=== PATIENT | female | born 1960 | race African-American/Black ===

== ENCOUNTER → 2016-09-06 | Outpatient (CLI) | payer OTHER ==
[2016-09-06 11:44] LABS: Basophils # (A) 0.1 k/uL (0-0.2); Basophils % (A) 2 %; CH 30.4; CHCM 33.1; Eosinophils # (A) 0.2 k/uL (0-0.7); Eosinophils % (A) 2 %; HCT 43.8 % (34.0-46.0); HGB 14.3 gm/dL (11.4-16.0); Luc # (Auto) 0.18; Luc % (Auto) 2; Lymphocytes # (A) 2.6 k/uL (1.0-4.8); Lymphocytes % (A) 33 %; MCH 30.1 pg (25.0-35.0); MCHC 32.6 g/dL (31.0-37.0); MCV 92.5 fL (80.0-100.0); Mean Platelet Volume 7.9; Monocytes # (A) 0.4 k/uL (0-1.0); Monocytes % (A) 5 %; Neutrophils # (A) 4.4 k/uL (1.3-7.7); Neutrophils % (A) 56 %; RBC 4.73 m/uL (3.80-5.40); RDW 13.2 % (11.5-15.5); WBC 7.8 k/uL (3.8-10.6); WBC (Perox) 7.65
[2016-09-06 12:30] LABS: ALT 35 U/L (9-52); AST 22 U/L (14-36); Alkaline Phosphatase 166 U/L (38-126); Anion Gap 12 mmol/L; Blood Urea Nitrogen 16 mg/dL (7-17); C Reactive Protein 19.5 mg/L (<10.0); Calcium 9.8 mg/dL (8.4-10.2); Carbon Dioxide 30 mmol/L (22-30); Chloride 100 mmol/L (98-107); Glucose 109 mg/dL (74-99); Non-African American GFR(MDRD) >60 (>60 ml/min/1.73 sqM); Potassium 3.6 mmol/L (3.5-5.1); Rheumatoid Factor, Qnt <9 IU/mL (<12); Sodium 142 mmol/L (137-145); Total Bilirubin 0.7 mg/dL (0.2-1.3); Total Protein 8.5 g/dL (6.3-8.2)
[2016-09-06 13:19] LABS: Vitamin B12 446 pg/mL (239-931)
[2016-09-06 15:14] LABS: Erythrocyte Sedimentation Rate 75 mm/hr (0-20)
== END | disposition home or self-care (01) ==
LOC: LABWHC1 11:01
PROVIDERS: ATTEND Nurse Practitioner Acute Care
DX: M35.3 Polymyalgia rheumatica (principal)
CPT/HCPCS: 36415; 80053; 82607; 84439; 84443; 84481; 85025; 85652; 86038; 86140; 86431

== ENCOUNTER → 2016-09-06 | Outpatient (CLI) | payer OTHER | END | disposition home or self-care (01) | LOC: RADMRIMAIN 10:18 | PROVIDERS: ATTEND Psychiatry & Neurology Neurology | DX: M54.2 Cervicalgia (principal); M54.5 Low back pain; Z53.9 Procedure and treatment not carried out, unspecified reason ==

== ENCOUNTER → 2016-09-26 | Outpatient (CLI) | payer OTHER ==
--- NOTE | 2016-09-26 11:09 | WWHP ---
DATE OF SERVICE: 09/26/2016 CHIEF COMPLAINT: The patient is here for her routine gynecologic exam and mammogram. HPI: This is a 56-year-old G0 with an LMP of 2010. She is without gynecologic complaints and denies any postmenopausal bleeding. She states it has been about 3 to 4 years since her last pelvic exam. 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 Dr. Tiwari is her primary care physician and Dr. Ian Redman at [facility] is her GI doctor. MEDICATIONS: 1. Hydrocodone t.i.d. p.r.n. 2. Norvasc 10 mg daily. 3. Hydrochlorothiazide 50 mg daily. 4. Diphenhydramine 50 mg p.r.n. 5. Omeprazole 20 mg p.r.n. 6. Alprazolam 1 mg p.r.n. 7. Pravastatin 20 mg q.h.s. ALLERGIES: No known drug allergies. PAST SURGICAL HISTORY: Left wrist surgery, left femur surgery for patricia placement and later was removed; laparotomy for tubal infertility and laparoscopy for infertility; also colonoscopy with upper endoscopy in 2016 and left breast biopsy in the past. 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 She has been treated for gonorrhea x2 and Chlamydia in her 20s. She has no other history of STDs. SOCIAL HISTORY: She previously smoked about 15 cigarettes per day, but is now trying to quit and is less than 10 cigarettes per day at this time. She rarely drinks alcohol about 2 drinks per year and does have a history of marijuana and cocaine use in the past. She states she has not used any drugs since about 2001. She is in her second marriage and she considers herself since she does not live with him anymore but they are still good friends and are sexually active. She states this is a monogamous relationship. She is considered disabled. FAMILY HISTORY: Father had oral cancer. Sister had uterine cancer. Grandmother and father had a stroke. Grandfather had heart disease and diabetes. REVIEW OF SYSTEMS: She states over the past few years she has gained about 50 pounds and is trying to actively lose weight and is now going to [employer]. She is considering bariatric surgery. She denies respiratory, cardiac, or GI problems. PHYSICAL EXAM: Blood pressure 154/79. Height 5 feet 4 inches. Weight 327 pounds. Temperature 96.3, pulse 80. This a well-developed, obese black female who is alert and oriented x3 in no acute distress. HEENT is within normal limits. NECK: Supple without mass or thyromegaly. CHEST AND LUNGS: Clear to auscultation. HEART: Regular rate and rhythm. Breasts are without mass or discharge. Axillary exam is negative for adenopathy. BACK: Negative for CVA tenderness. ABDOMEN: Morbidly obese, soft, nontender, without palpable masses. PELVIC EXAM: Normal external genitalia. Cervix and vagina reveal mild atrophy without lesions. There is no evidence of prolapse. The uterus is midposition, nongravid size and nontender. There are no palpable adnexal masses or tenderness. Bimanual examination is somewhat limited secondary to her size. Rectovaginal exam is negative for mass or tenderness and is negative for occult blood. EXTREMITIES: Nontender. IMPRESSION: 1. A 56-year-old menopausal female with unremarkable gynecologic exam. 2. Multiple medical problems including obesity. PLAN: 1. Pap smear was performed. 2. Self breast examination was discussed. 3. Mammogram will be done today. 4. She will return in one year.
--- NOTE | 2016-10-02 07:41 | MM ---
Reason for exam: screening (asymptomatic). Last mammogram was performed 2 years and 5 months ago. History: Patient is postmenopausal and is nulliparous. Benign stereotactic core biopsy of the left breast, 2002. Physical Findings: A clinical breast exam by your physician is recommended on an annual basis and results should be correlated with mammographic findings. MG Screening Mammo w CAD Bilateral CC and MLO view(s) were taken. Prior study comparison: April 17, 2014, mammogram, performed at [facility]. There are scattered fibroglandular densities. Previous mammotome biopsy in the left breast. There is chronic nodularity bilaterally. No significant changes when compared with prior studies. ASSESSMENT: Negative, BI-RAD 1 RECOMMENDATION: Routine screening mammogram of both breasts in 1 year.
== END | disposition home or self-care (01) ==
LOC: WWCWWP 09:28
PROVIDERS: ATTEND Obstetrics & Gynecology
DX: Z12.31 Encounter for screening mammogram for malignant neoplasm of breast (principal)

== ENCOUNTER → 2016-10-06 | Outpatient (CLI) | payer OTHER ==
--- NOTE | 2016-10-06 10:20 | XR ---
EXAMINATION TYPE: XR knee limited LT DATE OF EXAM ORDERED: 10/06/2016 9:48 AM HISTORY: M25.562 pain in left knee. COMPARISON: None. FINDINGS: There is peaking of the intercondylar spines. The joint spaces are reasonably well-maintai jana. There is no evidence of chondrocalcinosis. There is some remodeling change in the patellofemoral joint. No joint effusion is seen. IMPRESSION: MILD CHANGES OF OSTEOARTHRITIS.
== END ==
LOC: RADXRMAIN 09:30
PROVIDERS: ATTEND Nurse Practitioner Acute Care
DX: M17.12 Unilateral primary osteoarthritis, left knee (principal)

== ENCOUNTER → 2016-11-20 | Outpatient (CLI) | payer OTHER ==
--- NOTE | 2016-11-20 10:23 | US ---
EXAMINATION TYPE: US thyroid st tissue head/neck DATE OF EXAM: 11/20/2016 10:10 AM COMPARISON: NONE CLINICAL HISTORY: R13.13 Pharyngeal Dysphagia. Choking sensation GLAND SIZE: Right Lobe: 4.8 x 2.0 x 2.7 cm Overall Parenchyma: heterogenous Left Lobe: 4.2 x 1.3 x 1.8 cm Overall Parenchyma: heterogeneous Isthmus Thickness: 0.4 cm NODULES RIGHT: # of nodules measured on right: 1 1. 2.4 X 2.0 x 2.2 cm hypoechoic solid nodule at the mid pole with well-defined margins. This nodu le is taller than wide and shows no intranodular vascularity. Prior size: DISPATCH CLERK LEFT: # of nodules measured on left: 0 ISTHMUS: # of nodules measured in the isthmus: 0 Bilateral neck scanned, no evidence of lymphadenopathy. IMPRESSION: Nonspecific solid nodule right thyroid lobe. The need to biopsy should be made on a clinical basis.
== END | disposition home or self-care (01) ==
LOC: RADUSWWP 09:50
PROVIDERS: ATTEND Family Medicine
DX: E04.1 Nontoxic single thyroid nodule (principal)
CPT/HCPCS: 76536

== ENCOUNTER → 2016-11-30 | Outpatient (CLI) | payer OTHER ==
--- NOTE | 2016-11-30 09:14 | CT ---
EXAMINATION TYPE: CT chest wo con DATE OF EXAM: 11/30/2016 9:07 AM COMPARISON: NONE HISTORY: Cough. Shortness of breath. CT DLP: [address] of the chest was performed with lung and mediastinal window settings submitted. The la ck of contrast limits evaluation of the vascular, mediastinal and parenchymal structures including th e upper abdomen. LUNGS: The lungs are clear and free of infiltrate. No atelectasis. No pulmonary nodule or mass is de tected. No pleural effusion. No CT evidence of interstitial lung disease. MEDIASTINUM/MARIAM: Thoracic aorta is of normal caliber with limited evaluation given lack of contrast . The heart is not enlarged. Coronary artery calcifications. Thoracic aortic calcifications. No evid ence for mediastinal mass. No lymph nodes greater than 1cm. UPPER ABDOMEN: No significant abnormality is seen. OTHER: 5.5 mm stone left kidney. Degenerative change thoracic spine. IMPRESSION: 1. No infiltrate seen. Lungs are clear.
== END | disposition home or self-care (01) ==
LOC: RADCTMAIN 08:41
PROVIDERS: ATTEND Internal Medicine Pulmonary Disease
DX: R06.02 Shortness of breath (principal); R05 Cough
CPT/HCPCS: 71250

== ENCOUNTER → 2017-05-07 | Outpatient (CLI) | payer OTHER ==
--- NOTE | 2017-05-09 09:51 | P.ARTDOP ---
Arterial Doppler LOWER EXTREMITY ARTERIAL DOPPLER: DATE OF SERVICE: 05/07/2017 Reason for study: Numbness and tingling right thigh. Doppler waveforms: Multiphasic bilaterally throughout. Pulse volume recording: Normal configuration. Pressure gradients: None. Ankle-brachial indices: Greater than 1 bilaterally. Toe pressures: 110 on the right, 119 on the left Impression: Normal study.
== END | disposition home or self-care (01) ==
LOC: RADUSWWP 13:17
PROVIDERS: ATTEND Family Medicine
DX: M79.604 Pain in right leg (principal)
CPT/HCPCS: 93923

== ENCOUNTER → 2021-01-17 | Outpatient (CLI) | payer OTHER ==
[2021-01-17 08:12] LABS: African American GFR (CKD) >90 (>60 ml/min/1.73 sqM); Blood Urea Nitrogen 17 mg/dL (7-17); Non-African American GFR(CKD) 80 (>60 ml/min/1.73 sqM)
--- NOTE | 2021-01-17 13:19 | CT ---
EXAMINATION TYPE: CT angio neck DATE OF EXAM: 01/17/2021 COMPARISON: None HISTORY: 60-year-old female I 65.29, Carotid stenosis TECHNIQUE: Contiguous axial scanning of the neck performed with IV Contrast, patient initially inject ed with 65 mL [id number]-[id number]. There was subsequent injection of the remaining total 100 mL due to some ex travasation into the right arm. Coronal and sagittal reconstructions performed. 3-D reconstructions g enerated on a dedicated workstation. CT DLP: 460.1 mGycm Automated exposure control for dose reduction was used. FINDINGS: Mild emphysematous change in the visualized upper lungs. Bovine configuration to the aortic arch with mild atherosclerotic arch calcifications. Incidental low takeoff of the left vertebral artery from the proximal left subclavian artery. The left vertebral artery is dominant. The right vertebral artery is diminutive with a possible moder ate to severe stenosis at its origin. There is retropharyngeal course of the common carotid arteries. Mild atherosclerotic change of the right carotid bulb without significant narrowing. More severe atherosclerotic change at the left bifurcation with what appears to be a string sign from a severe stenosis or subtotal occlusion located just beyond the carotid bulb. NASCET criteria was u tilized. Moderate atherosclerotic calcifications bilateral carotid siphons. There is some reconstitution of th e supraclinoid left ICA. IMPRESSION: 1. EXTENSIVE ATHEROSCLEROTIC CHANGE AT THE PROXIMAL LEFT ICA WITH A SEVERE STENOSIS TO SUBTOTAL OCCLU LANEY JUST BEYOND THE CAROTID BULB AND SECONDARY STRING SIGN OF THE LEFT ICA. 2. NONDOMINANT RIGHT VERTEBRAL ARTERY WITH POSSIBLE MODERATE TO SEVERE STENOSIS AT ITS ORIGIN.
== END | disposition home or self-care (01) ==
LOC: RADCTMAIN 07:35
PROVIDERS: ATTEND Surgery
DX: I65.22 Occlusion and stenosis of left carotid artery (principal)
CPT/HCPCS: 82565; 84520; 70498; 36415; Q9967